=== PATIENT | male | born 1955 | race Two or more races ===

== ENCOUNTER 2020-05-13 07:16 | Emergency (ER) | payer OTHER ==
[2020-05-13 07:29] VITALS: BP 104/57; PULSE 84; TEMP 97.4; BMI 27.1
== END 2020-05-13 08:05 | disposition home or self-care (01) ==
LOC: JERFT 07:16 → JER 07:16 → JERFT 08:05
DX: S61.210A Laceration without foreign body of right index finger without damage to nail, initial encounter (principal); Z48.02 Encounter for removal of sutures
CPT/HCPCS: 99281-25